=== PATIENT | male | born 1965 | race Two or more races ===

== ENCOUNTER 2023-02-25 18:16 | Emergency (ER) | payer BC, OTHER ==
[~2023-02-25] VITALS: Ht 172.7 cm; Wt 102.3 kg
[2023-02-25] MEDS ORDERED: HYDROcodone-ACET 10/325MG TAB PO ONE (18:45)
[2023-02-25] MEDS ORDERED: LIDOCAINE 1% HCL (LOCAL ANESTH.) INJ 20ML MDV ID ONE (19:30)
[2023-02-25 20:05] VITALS: BP 129/86
== END 2023-02-25 20:13 | disposition home or self-care (01) ==
LOC: ER 18:16
DX: S63.296A Dislocation of distal interphalangeal joint of right little finger, initial encounter (principal); E11.9 Type 2 diabetes mellitus without complications; I10 Essential (primary) hypertension; W23.1XXA Caught, crushed, jammed, or pinched between stationary objects, initial encounter; Y93.89 Activity, other specified; Y92.89 Other specified places as the place of occurrence of the external cause; Y99.8 Other external cause status
CPT/HCPCS: 26770; 73130; 99284; J2001